=== PATIENT | female | born 1985 | race Caucasian/White ===

== ENCOUNTER 2024-01-20 19:23 | Emergency (ER) | payer MEDICAID ==
[~2024-01-20] VITALS: Ht 157.5 cm; Wt 62.0 kg
[2024-01-20 19:28] VITALS: PULSE 74
[2024-01-20 19:31] VITALS: BP 142/59; RESP 16; TEMP 98.1; O2SAT 100
[2024-01-20] MEDS ORDERED: FLUORESCEIN SODIUM 1MG/STRIP BOTHEYE ONE (19:45)
[2024-01-20] MEDS ORDERED: TETRACAINE 0.5% OPHTH DROPS 4ML BOTHEYE ONE (19:45)
[2024-01-20] MEDS: TETRACAINE 0.5% OPHTH DROPS 4ML BOTHEYE NR (22:15)
[2024-01-20] MEDS: FLUORESCEIN SODIUM 1MG/STRIP BOTHEYE NR (22:15)
[2024-01-20] MEDS ORDERED: OCUFLX EACHEYE (22:19)
== END 2024-01-20 22:46 | disposition home or self-care (01) ==
LOC: ER 19:23
DX: H10.9 Unspecified conjunctivitis (principal); Z98.890 Other specified postprocedural states; Z88.0 Allergy status to penicillin
CPT/HCPCS: 99282; 99283

== ENCOUNTER 2025-02-19 17:12 | Emergency (ER) | payer MEDICAID ==
[~2025-02-19] VITALS: Ht 170.2 cm; Wt 64.0 kg
[~2025-02-19 17:12] MED LIST: OCUFLX EACHEYE
[2025-02-19 17:19] VITALS: TEMP 36.9; O2SAT 99
[2025-02-19] MEDS: ACETAMINOPHEN 325MG TABLET PO ONE (18:29)
[2025-02-19] MEDS ORDERED: ACET-2708 MT (18:34)
[2025-02-19 19:47] VITALS: BP 146/70; PULSE 75; RESP 16; O2SAT 99
== END 2025-02-19 19:53 | disposition home or self-care (01) ==
LOC: ER 17:12
DX: S63.501A Unspecified sprain of right wrist, initial encounter (principal); Z88.0 Allergy status to penicillin; Z88.8 Allergy status to other drugs, medicaments and biological substances; W10.9XXA Fall (on) (from) unspecified stairs and steps, initial encounter; Y93.89 Activity, other specified; Y92.89 Other specified places as the place of occurrence of the external cause; Y99.8 Other external cause status
CPT/HCPCS: 73110; 73130; 99284